=== PATIENT | male | born 1955 | race Caucasian/White ===

== ENCOUNTER 2017-12-18 05:39 | Inpatient (IN) | payer BC ==
[~2017-12-18] VITALS: Ht 182.9 cm; Wt 60.7 kg
[~2017-12-18 05:39] MED LIST: ALBU18HF INH; CELE200C PO; CHOL3000 PO; FLUT1DIS5 IH; GABA300C10 PO; TIOT18CA INH
[2017-12-18] MEDS ORDERED: LACTATED RINGERS 1,000 ML IV SCH (06:18)
[2017-12-18 06:44] VITALS: BP 114/81
[2017-12-18] MEDS ORDERED: INDIGO CARMINE 0.8%, 5ML ONE (06:53)
[2017-12-18] MEDS ORDERED: LIDOCAINE-MPF 2% ,5ML ONE (06:53)
[2017-12-18] MEDS ORDERED: PROPOFOL 10 MG/ML, 20ML ONE (06:53)
[2017-12-18] MEDS ORDERED: BUPIVACAINE/PF 0.5% ONE (06:53)
[2017-12-18] MEDS ORDERED: EPINEPHRINE 1 MG/ML, 1ML ONE (06:54)
[2017-12-18] MEDS ORDERED: THROMBIN 5,000 UNIT VIAL TP ONE (06:54)
[2017-12-18] MEDS ORDERED: LIDOCAINE 1%, 20ML ONE (06:54)
[2017-12-18] MEDS ORDERED: BACITRACIN 50,000 UNIT ONE (06:54)
[2017-12-18] MEDS ORDERED: ROCURONIUM 10 MG/ML,10ML ONE (06:54)
[2017-12-18] MEDS ORDERED: MIDAZOLAM 1 MG/ML, 2ML ONE (06:56)
[2017-12-18] MEDS ORDERED: REMIFENTANIL 2 MG ONE (06:59)
[2017-12-18] MEDS ORDERED: PROPOFOL 50 ML ONE ×4 (07:15→09:57)
[2017-12-18] MEDS ORDERED: CEFAZOLIN 1,000 MG ONE ×2 (08:13)
[2017-12-18] MEDS ORDERED: EPHEDRINE 50 MG/ML, 1ML ONE (08:13)
[2017-12-18] MEDS ORDERED: DEXAMETHASONE 4 MG/ML, 1ML ONE ×3 (08:13)
[2017-12-18] MEDS ORDERED: PHENYLEPHRINE 10 MG/ML ONE (08:22)
[2017-12-18] MEDS ORDERED: BUPIVACAINE/PF 0.25% ONE (09:01)
[2017-12-18] MEDS ORDERED: ONDANSETRON 2MG/ML, 2ML ONE (09:59)
[2017-12-18] MEDS ORDERED: FENTANYL PF 100 MCG/2ML ONE ×2 (10:41→12:01)
[2017-12-18] MEDS ORDERED: ACETAMINOPHEN 325 MG TABLET PO PRN (11:00)
[2017-12-18] MEDS ORDERED: FENTANYL PF 100 MCG/2ML IV PRN (11:00)
[2017-12-18] MEDS ORDERED: MEPERIDINE/PF 25MG/0.5ML IVPush PRN (11:00)
[2017-12-18] MEDS ORDERED: morphine SULFATE 10 MG/ML, 1ML IV PRN (11:00)
[2017-12-18] MEDS ORDERED: OXYcodone 5 MG/5 ML ORAL.SOL UDC PO PRN (11:00)
[2017-12-18] MEDS ORDERED: HYDROcodone/APAP 7.5-325MG/15ML UDC PO PRN ×2 (11:00→13:30)
[2017-12-18] MEDS ORDERED: ONDANSETRON 2MG/ML, 2ML IVPush PRN (11:00)
[2017-12-18] MEDS ORDERED: ACETAMINOPHEN 650 MG/20.3 ML UDC ONE (12:00)
[2017-12-18] MEDS ORDERED: OXYcodone 5 MG/5 ML ORAL.SOL UDC ONE (12:01)
[2017-12-18] MEDS ORDERED: BISACODYL 10 MG SUPP PR PRN (13:30)
[2017-12-18] MEDS ORDERED: DIPHENHYDRAMINE 50 MG CAPSULE PO PRN (13:30)
[2017-12-18] MEDS ORDERED: OXYcodone IR 5MG TABLET PO PRN ×2 (13:30→14:00)
[2017-12-18] MEDS ORDERED: CYCLOBENZAPRINE 10 MG TABLET PO PRN (13:30)
[2017-12-18] MEDS ORDERED: LABETALOL 5MG/ML, 20ML IV PRN (13:30)
[2017-12-18] MEDS ORDERED: DIPHENHYDRAMINE 50 MG/ML, 1ML IM PRN (13:30)
[2017-12-18] MEDS ORDERED: PROMETHAZINE 25 MG/ML, 1ML IM PRN (13:30)
[2017-12-18] MEDS ORDERED: PROMETHAZINE 25 MG SUPP PR PRN (13:30)
[2017-12-18] MEDS ORDERED: DIPHENHYDRAMINE 50 MG/ML, 1ML IVPush PRN (13:30)
[2017-12-18] MEDS ORDERED: MAGNESIUM HYDROXIDE 8%, 30ML UDC PO PRN (13:30)
[2017-12-18] MEDS: D5%-0.9% NACL+KCL 20MEQ 1,000 ML IV SCH ×2 (15:02→21:30)
[2017-12-18] MEDS: DEXAMETHASONE 4 MG/ML, 1ML IV SCH ×2 (15:02→19:52)
[2017-12-18] MEDS: CEFAZOLIN PMX 1GM/50ML 50 ML IVPB SCH ×2 (15:03→22:58)
[2017-12-18 19:57] VITALS: BP 107/69
[2017-12-18] MEDS ORDERED: ALBUTEROL SULFATE 2.5 MG/3 ML NPPB PRN (21:30)
[2017-12-18] MEDS: GABAPENTIN 300 MG CAPSULE PO SCH (21:37)
[2017-12-19 00:07] VITALS: BP 102/74
[2017-12-19] MEDS: D5%-0.9% NACL+KCL 20MEQ 1,000 ML IV SCH ×2 (00:26→08:30)
[2017-12-19] MEDS: DEXAMETHASONE 4 MG/ML, 1ML IV SCH (02:01)
[2017-12-19 04:21] VITALS: BP_SYST 107; BP_SYST 83; BP_DIAS 50; BP_DIAS 62
[2017-12-19] MEDS: CEFAZOLIN PMX 1GM/50ML 50 ML IVPB SCH (06:27)
[2017-12-19] MEDS: GABAPENTIN 300 MG CAPSULE PO SCH ×2 (06:27→11:19)
[2017-12-19 07:22] VITALS: BP 101/60
[2017-12-19] MEDS ORDERED: SENNA/DOCUSATE TABLET PO SCH (09:00)
[2017-12-19] MEDS ORDERED: CHOLECALCIFEROL 1,000 UNIT TABLET PO SCH (09:00)
[2017-12-19] MEDS ORDERED: FLUTICASONE/VILANTEROL 200-25MCG/INH INH SCH (09:00)
[2017-12-19] MEDS: IPRATROPIUM 0.5 MG/2.5 ML INHA NPPB SCH ×3 (09:47→11:21)
[2017-12-19 11:30] VITALS: BP 116/70
[2017-12-19] MEDS ORDERED: HYDR-3307 PO (11:59)
== END 2017-12-19 12:09 | disposition home or self-care (01) | DRG 520 ==
LOC: OUT 05:39 → 4NOR 12:48 → OUT 13:31 → DCLOUNGE 12-19 11:45
PROVIDERS: ADMIT Orthopaedic Surgery Orthopaedic Surgery of the Spine; ATTEND Orthopaedic Surgery Orthopaedic Surgery of the Spine
PROC: 4A11X4G Monitoring of Peripheral Nervous Electrical Activity, Intraoperative, External Approach (ICD-10-PCS; 2017-12-18)
PROC: 0RB30ZZ Excision of Cervical Vertebral Disc, Open Approach (ICD-10-PCS; principal; 2017-12-18 07:30)
DX: M47.892 Other spondylosis, cervical region (principal); M48.02 Spinal stenosis, cervical region; J44.9 Chronic obstructive pulmonary disease, unspecified; M47.22 Other spondylosis with radiculopathy, cervical region
CPT/HCPCS: 72040; C1713; C1776; J0171; J0690; J1100; J2250; J2405; J2704; J3010; J3490; J2370; J3480; J7120